=== PATIENT | male | born 1980 | race Caucasian/White ===

== ENCOUNTER 2016-09-26 16:54 | Emergency (ER) | payer OTHER ==
--- NOTE | 2016-09-26 18:05 | ERPHSYRPT ---
- History of Present Illness Time Seen by Provider: 09/26/16 17:32 Source: patient Patient Subjective Stated Complaint: PT REPORTS TAPE WAS CAUGHT ON COVERING OF PICC LINE-STATES THAT BANDAGE CAME OFF ET LINE CAME OUT DOTTY 1 IN-STATES HE HAS USED LINE SINCE THEN WITH NO DIFFICULTY-STATES HE NEEDS A DRESSING PLACED- DENIES UNSUAL PAIN OR DISCOMFORT Triage Nursing Assessment: PT PINK WARM ET BCG-LRXAA-SFLOE BLOOD NOTED AT SITE- TELFA DRESSING CURLED-NO EXCESSIVE REDNESS OR SWELLING NOTED Physician History: CC: PICC check Hx: 35 y/o patient of Dr Pringle and Ciro. He has a right arm PICC placed in radiology per Dr Chapman for IV abtx for leg wounds. Legs are doing well. He is using the abtx. He snagged the PICC on the dressing this AM. It pulled out about an inch. He has used the PICC without problem. He wants dressing changed. No redness, drng on PICC site. No fever or chills. No other complaints. Timing/Duration: today (am) Allergies/Adverse Reactions: sulfamethoxazole [From Novra] Allergy (Mild, Verified 09/26/16 17:03) trimethoprim [From Novra] Allergy (Mild, Verified 09/26/16 17:03) Home Medications: Clonidine HCl 0.1 mg [Catapres 0.1 MG] 0.3 mg PO BID 01/14/15 [History] Rivaroxaban [Xarelto] 20 mg PO DAILY 01/14/15 [History] Ceftolozane/Tazobactam [Zerbaxa 1.5 Gram Vial] 1.5 gm IV TID 09/27/15 [History] Daptomycin 500 mg [Cubicin 500 MG] 900 mg IV DAILY 09/27/15 [History] Losartan Potassium [Cozaar] 100 mg PO DAILY 09/26/16 [History] Hx Tetanus, Diphtheria Vaccination/Date Given: No Hx Influenza Vaccination/Date Given: No Hx Pneumococcal Vaccination/Date Given: No Immunizations Up to Date: Yes - Review of Systems Constitutional: No Fever, No Chills Neurological: No Focal Weakness, No Paralysis - Past Medical History Pertinent Past Medical History: Yes Neurological History: No Pertinent History ENT History: No Pertinent History Cardiac History: Deep Vein Thrombosis, Hypertension, Peripheral Vascular Disease Respiratory History: Bronchitis Endocrine Medical History: No Pertinent History Musculoskeletal History: No Pertinent History GI Medical History: No Pertinent History History: No Pertinent History Psycho-Social History: No Pertinent History Male Reproductive Disorders: No Pertinent History Other Medical History: venous ulcers, pyoderma gangrenouses auto immune disease, factor V leiden deficiency blood deficiency, hx mrsa left ankle - Past Surgical History Past Surgical History: Yes Neuro Surgical History: No Pertinent History Cardiac: No Pertinent History Respiratory: No Pertinent History Gastrointestinal: No Pertinent History Genitourinary: No Pertinent History Musculoskeletal: No Pertinent History Male Surgical History: No Pertinent History Other Surgical History: tonsils - Social History Smoking Status: Never smoker Exposure to second hand smoke: Yes Drug Use: none Patient Lives Alone: No Significant Family History: no pertinent family hx - Nursing Vital Signs Nursing Vital Signs: Initial Vital Signs Temperature 99.1 F 09/26/16 16:59 Pulse Rate 89 09/26/16 16:59 Respiratory Rate 18 09/26/16 16:59 Blood Pressure 144/98 09/26/16 16:59 O2 Sat by Pulse Oximetry 97 09/26/16 16:59 Pain Scale Pain Intensity 0 - Physical Exam General Appearance: alert Cardiovascular Exam: regular rate/rhythm Neurologic Exam: alert, oriented x 3, cooperative Skin Exam: warm, dry SpO2: 97 Oxygen Delivery: Room Air Comments: 09/26/16 18:02 Leg wrap on. The PICC is in the right arm. There is about 2.5 cm out of the arm. The dressing is rolled up and not covering the site. There is no redness, drng, or pus. The arm is not swollen. - Course Nursing assessment & vital signs reviewed: Yes - Radiology Exams cxr X-ray Interpretation: Reviewed by me (PICC in SVC and appears ok) Ordered Tests: Active Orders 24 hr Category Date Time Status CHEST 1 VIEW (PORTABLE) Stat Exams 09/26/16 17:38 Ordered - Progress Progress Note: 09/26/16 18:03 Advised pt not to advance the catheter back in. Ok to use and follow up with dr Carmona. PICC nurse redressed the insertion site. Counseled pt/family regarding: diagnosis, need for follow-up - Departure Time of Disposition: 18:04 Departure Disposition: Home Clinical Impression: Displacement of peripherally inserted central venous catheter (PICC) Condition: Stable Critical Care Time: No Referrals: THADDEUS CARMONA [Primary Care Provider] - NATALI PRINGLE [NON-STAFF PHY W/O PRIVILEGES] - Instructions: Change the Dressing on a Central Line Catheter for Adults Additional Instructions: Do not advance catheter or pull it out further. Keep dressing clean and dry. Follow up next week with Dr pringle. Report fever, redness, drainage, pus, or swelling.
[2016-09-26 18:14] VITALS: BP 142/100; PULSE 78; O2SAT 98
--- NOTE | 2016-09-27 17:51 | XRAY ---
Indication: Evaluate PICC line placement following accidental catheter manipulation. Comparison: Fluoroscopic image one day earlier. Portable chest demonstrates right arm PICC line with the tip in the proximal SVC slightly withdrawn compared to yesterday's exam still in good position. Remaining heart, lungs, and bony thorax normal.
== END 2016-09-26 18:14 | disposition home or self-care (01) ==
LOC: ED 16:54
DX: Z45.2 Encounter for adjustment and management of vascular access device (principal)
CPT/HCPCS: 71010; 99282

== ENCOUNTER 2019-03-20 16:14 | Emergency (ER) | payer OTHER ==
--- NOTE | 2019-03-20 16:25 | ERPHSYRPT ---
- History of Present Illness Source: patient, family Exam Limitations: no limitations Timing/Duration: day(s) (4) Severity: moderate Associated Symptoms: nausea, abdominal pain (left), chest pain Hx Tetanus, Diphtheria Vaccination/Date Given: No Hx Influenza Vaccination/Date Given: No Hx Pneumococcal Vaccination/Date Given: No <PRIYANKA WEINER - Last Filed: 03/20/19 19:05> <RAMA RUSSO - Last Filed: 03/20/19 22:24> - History of Present Illness Time Seen by Provider: 03/20/19 16:25 Physician History: 38 y/o diabetic morbidly obese white male with h/o htn and dvt on coumadin( stopped 2 days ago secondary to blood in bm), presents with left nonradiating cp and left upper abd pain. pt states he feel nauseated. (PRIYANKA WEINER) Allergies/Adverse Reactions: sulfamethoxazole [From Novra] Allergy (Mild, Verified 03/20/19 16:31) trimethoprim [From Novra] Allergy (Mild, Verified 03/20/19 16:31) Home Medications: Losartan Potassium [Cozaar] 100 mg PO DAILY 09/26/16 [History] Amlodipine Besylate 10 mg PO DAILY 03/20/19 [History] Apixaban [Eliquis] 5 mg PO BID 03/20/19 [History] Metformin HCl Xr 500 mg [Glucophage XR 500 MG] 500 mg PO DAILY 03/20/19 [ History] Metoprolol Tartrate 100 mg PO DAILY 03/20/19 [History] Triamterene/Hydrochlorothiazid [Triamterene-Hctz 75-50 mg Tab] 1 each PO DAILY 03/20/19 [History] - Review of Systems Constitutional: No Symptoms Eyes: No Symptoms Ears, Nose, & Throat: No Symptoms Respiratory: No Symptoms Cardiac: Chest Pain Abdominal/Gastrointestinal: Abdominal Pain, Nausea Genitourinary Symptoms: No Symptoms Musculoskeletal: No Symptoms Skin: No Symptoms Neurological: No Symptoms Psychological: No Symptoms Endocrine: No Symptoms Hematologic/Lymphatic: No Symptoms Immunological/Allergic: No Symptoms All Other Systems: Reviewed and Negative <PRIYANKA WEINER - Last Filed: 03/20/19 19:05> - Past Medical History Pertinent Past Medical History: Yes Neurological History: No Pertinent History ENT History: No Pertinent History Cardiac History: Deep Vein Thrombosis, Hypertension, Peripheral Vascular Disease Respiratory History: Bronchitis Endocrine Medical History: No Pertinent History Musculoskeletal History: No Pertinent History GI Medical History: No Pertinent History History: No Pertinent History Psycho-Social History: No Pertinent History Male Reproductive Disorders: No Pertinent History Other Medical History: venous ulcers, pyoderma gangrenouses auto immune disease, factor V leiden deficiency blood deficiency, hx mrsa left ankle - Past Surgical History Past Surgical History: Yes Neuro Surgical History: No Pertinent History Cardiac: No Pertinent History Respiratory: No Pertinent History Gastrointestinal: No Pertinent History Genitourinary: No Pertinent History Musculoskeletal: No Pertinent History Male Surgical History: No Pertinent History Other Surgical History: tonsils - Social History Smoking Status: Never smoker Exposure to second hand smoke: Yes Drug Use: none Patient Lives Alone: No Significant Family History: no pertinent family hx <PRIYANKA WEINER - Last Filed: 03/20/19 19:05> - Physical Exam General Appearance: mild distress, alert, anxiety, obese Eye Exam: PERRL/EOMI, eyes nml inspection Ears, Nose, Throat Exam: normal ENT inspection, moist mucous membranes Neck Exam: normal inspection, non-tender, supple, full range of motion Respiratory Exam: normal breath sounds, chest tenderness, lungs clear, airway intact, No respiratory distress Cardiovascular Exam: regular rate/rhythm, normal heart sounds, normal peripheral pulses Gastrointestinal/Abdomen Exam: soft, normal bowel sounds, No tenderness Rectal Exam: not done Back Exam: normal inspection, normal range of motion, No CVA tenderness, No vertebral tenderness Extremity Exam: normal inspection, normal range of motion, pelvis stable Neurologic Exam: alert, oriented x 3, cooperative, load out worker II-XII nml as tested Skin Exam: normal color, warm, dry Lymphatic Exam: No adenopathy SpO2 Interpretation: normal O2 Delivery: Room Air <PRIYANKA WEINER - Last Filed: 03/20/19 19:05> - Nursing Vital Signs Nursing Vital Signs: Initial Vital Signs Temperature 98.0 F 03/20/19 16:16 Pulse Rate 60 03/20/19 16:16 Respiratory Rate 17 03/20/19 16:16 Blood Pressure 121/69 03/20/19 16:16 O2 Sat by Pulse Oximetry 99 03/20/19 16:16 Pain Scale Pain Intensity 0 - Course Nursing assessment & vital signs reviewed: Yes EKG Interpreted by Me: RATE (91), Sinus Rhythm, NORMAL AXIS, NORMAL INTERVALS, NORMAL QRS, Other (no comparison ekg. ) <PRIYANKA WEINER - Last Filed: 03/20/19 19:05> - CT Exams Chest CT Interpretation: Other (radiologist interpretation: None intervals: Suboptimal opacification pulmonary arteries. No obvious central pulmonary embolus. Mild enlarged mediastinal bilateralaadenopathy, largest precarinal 2.0 x 3.3 cm. A few tiny indeterminate bilateral noncalcified lung nodules, large is 7 mm in the left lower lobe. Remaining CT of the chest negative.) Abdomen/Pelvis CT Interpretation: Other (radiologist interpretation:hhepatomegaly, mild fecal stasis, mild scattered colonic diverticula otherwise negative CT abdomen and pelvis) Head CT Interpretation: Other (per radiologist's interpretation: None the costal thickening bilateral ethmoid sinuses. Otherwise normal head CT.) <RAMA RUSSO - Last Filed: 03/20/19 22:24> Ordered Tests: Active Orders 24 hr Category Date Time Status EKG-ER Only STAT Care 03/20/19 16:39 Active IV Insertion STAT Care 03/20/19 16:39 Active ABDOMEN AND PELVIS W/0 CONTRAS [CT] Stat Exams 03/20/19 16:40 Taken CHEST 1 VIEW (PORTABLE) Stat Exams 03/20/19 16:40 Taken CHEST WITH CONTRAST [CT] Stat Exams 03/20/19 18:32 Taken HEAD WITHOUT CONTRAST [CT] Stat Exams 03/20/19 16:43 Taken AMYLASE Stat Lab 03/20/19 17:00 Completed CBC W DIFF Stat Lab 03/20/19 17:00 Completed CMP Stat Lab 03/20/19 17:00 Completed D-DIMER QUANTITATIVE Stat Lab 03/20/19 17:00 Completed LIPASE Stat Lab 03/20/19 17:00 Completed Lactic Acid Stat Lab 03/20/19 17:01 Completed PROTIME WITH INR Stat Lab 03/20/19 17:00 Completed TROPONIN Q3H Lab 03/20/19 17:00 Completed TROPONIN Q3H Lab 03/20/19 20:25 Completed TROPONIN Q3H Lab 03/20/19 22:45 Ordered TROPONIN Q3H Lab 03/21/19 01:45 Ordered TROPONIN Q3H Lab 03/21/19 04:45 Ordered UA W/RFX UR CULTURE Stat Lab 03/20/19 Completed Medication Summary Discontinued Medications Generic Name Dose Route Start Last Admin Trade Name Nicolás PRN Reason Stop Dose Admin Hydromorphone HCl 1 mg 03/20/19 16:39 03/20/19 17:29 Hydromorphone 1 Mg/Ml Ampule IV 03/20/19 16:40 1 mg STAT ONE Administration Hydromorphone HCl Confirm 03/20/19 17:27 Hydromorphone 1 Mg/Ml Ampule Administered 03/20/19 17:28 Dose 1 mg .ROUTE .STK-MED ONE Sodium Chloride 1,000 mls @ 999 mls/hr 03/20/19 16:39 03/20/19 18:45 Sodium Chloride 0.9% 1000 Ml IV 03/20/19 17:39 Infused .Q1H1M STA Infusion Sodium Chloride Confirm 03/20/19 17:27 Sodium Chloride 0.9% 1000 Ml Administered 03/20/19 17:28 Dose 1,000 mls @ ud .ROUTE .STK-MED ONE Ondansetron HCl 4 mg 03/20/19 16:39 03/20/19 17:29 Zofran 4 Mg/2 Ml Vial IV 03/20/19 16:40 4 mg STAT ONE Administration Ondansetron HCl Confirm 03/20/19 17:27 Zofran 4 Mg/2 Ml Vial Administered 03/20/19 17:28 Dose 4 mg .ROUTE .STK-MED ONE Lab/Rad Data: Laboratory Result Diagrams 03/20/19 17:00 03/20/19 17:00 Laboratory Results 03/20/19 03/20/19 03/20/19 Range/Units Unknown 20:25 17:01 WBC (4.0-10.5) K/mm3 RBC (4.1-5.6) M/mm3 Hgb (12.5-18.0) gm/dl Hct (42-50) % MCV (78-100) fl MCH (26-32) pg MCHC (32-36) g/dl RDW (11.5-14.0) % Plt Count (150-450) K/mm3 MPV (7.5-11.0) fl Gran % (36.0-66.0) % Eos # (Auto) (0-0.5) Absolute Lymphs (auto) (1.0-4.6) Absolute Monos (auto) (0.0-1.3) Lymphocytes % (24.0-44.0) % Monocytes % (0.0-12.0) % Eosinophils % (0.00-5.0) % Basophils % (0.0-0.4) % Absolute Granulocytes (1.4-6.9) Basophils # (0-0.4) PT (8.83-12.87) SECONDS INR (0.8-3.0) D-Dimer (215-500) ng/mL Sodium (137-145) mmol/L Potassium (3.5-5.1) mmol/L Chloride (98-107) mmol/L Carbon Dioxide (22-30) mmol/L Anion Gap (5-15) MEQ/L BUN (9-20) mg/dL Creatinine (0.66-1.25) mg/dL Estimated GFR ML/MIN Glucose (74-106) mg/dL Lactic Acid 1.7 (0.4-2.0) Calcium (8.4-10.2) mg/dL Total Bilirubin (0.2-1.3) mg/dL AST (17-59) U/L ALT (0-50) U/L Alkaline Phosphatase (38-126) U/L Troponin I < 0.012 (0.000-0.034) ng/mL Serum Total Protein (6.3-8.2) g/dL Albumin (3.5-5.0) g/dL Amylase (30-110) U/L Lipase (23-300) U/L Urine Color YELLOW (YELLOW) Urine Appearance CLEAR (CLEAR) Urine pH 6.0 (5-6) Ur Specific [place] 1.015 (1.005-1.025) Urine Protein NEGATIVE (Negative) Urine Ketones NEGATIVE (NEGATIVE) Urine Blood NEGATIVE (0-5) Leobardo/ul Urine Nitrite NEGATIVE (NEGATIVE) Urine Bilirubin NEGATIVE (NEGATIVE) Urine Urobilinogen NEGATIVE (0-1) mg/dL Ur Leukocyte Esterase NEGATIVE (NEGATIVE) Urine WBC (Auto) NONE (0-5) /HPF Urine RBC (Auto) NONE (0-2) /HPF U Epithel Cells (Auto) NONE (FEW) /HPF Urine Bacteria (Auto) NONE (NEGATIVE) /HPF Urine Culture Reflexed NO (NO) Urine Glucose NEGATIVE (NEGATIVE) mg/dL 03/20/19 03/20/19 03/20/19 Range/Units 17:00 17:00 17:00 WBC (4.0-10.5) K/mm3 RBC (4.1-5.6) M/mm3 Hgb (12.5-18.0) gm/dl Hct (42-50) % MCV (78-100) fl MCH (26-32) pg MCHC (32-36) g/dl RDW (11.5-14.0) % Plt Count (150-450) K/mm3 MPV (7.5-11.0) fl Gran % (36.0-66.0) % Eos # (Auto) (0-0.5) Absolute Lymphs (auto) (1.0-4.6) Absolute Monos (auto) (0.0-1.3) Lymphocytes % (24.0-44.0) % Monocytes % (0.0-12.0) % Eosinophils % (0.00-5.0) % Basophils % (0.0-0.4) % Absolute Granulocytes (1.4-6.9) Basophils # (0-0.4) PT 12.8 (8.83-12.87) SECONDS INR 1.13 (0.8-3.0) D-Dimer 1100 H* (215-500) ng/mL Sodium (137-145) mmol/L Potassium (3.5-5.1) mmol/L Chloride (98-107) mmol/L Carbon Dioxide (22-30) mmol/L Anion Gap (5-15) MEQ/L BUN (9-20) mg/dL Creatinine (0.66-1.25) mg/dL Estimated GFR ML/MIN Glucose (74-106) mg/dL Lactic Acid (0.4-2.0) Calcium (8.4-10.2) mg/dL Total Bilirubin (0.2-1.3) mg/dL AST (17-59) U/L ALT (0-50) U/L Alkaline Phosphatase (38-126) U/L Troponin I < 0.012 (0.000-0.034) ng/mL Serum Total Protein (6.3-8.2) g/dL Albumin (3.5-5.0) g/dL Amylase (30-110) U/L Lipase (23-300) U/L Urine Color (YELLOW) Urine Appearance (CLEAR) Urine pH (5-6) Ur Specific [place] (1.005-1.025) Urine Protein (Negative) Urine Ketones (NEGATIVE) Urine Blood (0-5) Leobardo/ul Urine Nitrite (NEGATIVE) Urine Bilirubin (NEGATIVE) Urine Urobilinogen (0-1) mg/dL Ur Leukocyte Esterase (NEGATIVE) Urine WBC (Auto) (0-5) /HPF Urine RBC (Auto) (0-2) /HPF U Epithel Cells (Auto) (FEW) /HPF Urine Bacteria (Auto) (NEGATIVE) /HPF Urine Culture Reflexed (NO) Urine Glucose (NEGATIVE) mg/dL 03/20/19 03/20/19 Range/Units 17:00 17:00 WBC 10.6 H (4.0-10.5) K/mm3 RBC 4.42 (4.1-5.6) M/mm3 Hgb 14.6 (12.5-18.0) gm/dl Hct 42.5 (42-50) % MCV 96.2 (78-100) fl MCH 33.0 H (26-32) pg MCHC 34.4 (32-36) g/dl RDW 13.4 (11.5-14.0) % Plt Count 243 (150-450) K/mm3 MPV 8.9 (7.5-11.0) fl Gran % 83.7 H (36.0-66.0) % Eos # (Auto) 0.20 (0-0.5) Absolute Lymphs (auto) 0.98 L (1.0-4.6) Absolute Monos (auto) 0.53 (0.0-1.3) Lymphocytes % 9.3 L (24.0-44.0) % Monocytes % 5.0 (0.0-12.0) % Eosinophils % 1.9 (0.00-5.0) % Basophils % 0.1 (0.0-0.4) % Absolute Granulocytes 8.86 H (1.4-6.9) Basophils # 0.01 (0-0.4) PT (8.83-12.87) SECONDS INR (0.8-3.0) D-Dimer (215-500) ng/mL Sodium 143 (137-145) mmol/L Potassium 4.2 (3.5-5.1) mmol/L Chloride 104 (98-107) mmol/L Carbon Dioxide 27 (22-30) mmol/L Anion Gap 15.8 H (5-15) MEQ/L BUN 27 H (9-20) mg/dL Creatinine 1.21 (0.66-1.25) mg/dL Estimated GFR > 60.0 ML/MIN Glucose 89 (74-106) mg/dL Lactic Acid (0.4-2.0) Calcium 9.3 (8.4-10.2) mg/dL Total Bilirubin 1.00 (0.2-1.3) mg/dL AST 30 (17-59) U/L ALT 33 (0-50) U/L Alkaline Phosphatase 42 (38-126) U/L Troponin I (0.000-0.034) ng/mL Serum Total Protein 7.7 (6.3-8.2) g/dL Albumin 4.3 (3.5-5.0) g/dL Amylase 135 H (30-110) U/L Lipase 388 H (23-300) U/L Urine Color (YELLOW) Urine Appearance (CLEAR) Urine pH (5-6) Ur Specific [place] (1.005-1.025) Urine Protein (Negative) Urine Ketones (NEGATIVE) Urine Blood (0-5) Leobardo/ul Urine Nitrite (NEGATIVE) Urine Bilirubin (NEGATIVE) Urine Urobilinogen (0-1) mg/dL Ur Leukocyte Esterase (NEGATIVE) Urine WBC (Auto) (0-5) /HPF Urine RBC (Auto) (0-2) /HPF U Epithel Cells (Auto) (FEW) /HPF Urine Bacteria (Auto) (NEGATIVE) /HPF Urine Culture Reflexed (NO) Urine Glucose (NEGATIVE) mg/dL - Progress Progress: improved <PRIYANKA WEINER - Last Filed: 03/20/19 19:05> - Progress Progress: improved Counseled pt/family regarding: lab results, diagnosis, need for follow-up, rad results <RAMA RUSSO - Last Filed: 03/20/19 22:24> - Progress Progress Note: 03/20/19 19:05 transfer of care to dr. russo. he accepts pt at shift change. (PRIYANKA WEINER) 03/20/19 22:00 The patient has no chest pain or shortness of breath at this time. Patient states he stopped taking his Eliquis due to having blood seen in his stool which he has discussed with this physician, Dr. Prather, who he he has setup for a colonoscopy with Dr Prather performing it. With two negative troponins and a negative CT of the Chest for obvious large pulmonary embolus, ppatient will followup with his physician on 03/21/20192 discussed restarting the Eliquis due to his risk factors of being thrombophilia from having factor V Leiden and getting his colonoscopy sooner than at the end of this month. patient is not require inpatient admission this timeas he is at low risk of having any acute cardiac, palmar, vascular or infectious etiology causing his chest pain at this time with a low heart score in 2 negative troponins and a negative CT of the chest. (RAMA RUSSO) <PRIYANKA WEINER - Last Filed: 03/20/19 19:05> - Departure Departure Disposition: Home Critical Care Time: No <RAMA RUSSO - Last Filed: 03/20/19 22:24> - Departure Clinical Impression: Upper abdominal pain Chest pain Qualifiers: Chest pain type: unspecified Qualified Code(s): R07.9 - Chest pain, unspecified Condition: Good Referrals: SHIN PRATHER [Primary Care Provider] - 03/21/19 (discuss to do the colonoscopy sooner and restart your Eliquis on 03/21/[address] Prather) Instructions: Shortness of Breath (Dyspnea) (DC), Chest Pain (DC), Acute Abdomen (Belly Pain), Adult (DC) Additional Instructions: Discharge/Care Plan JUMANA BALLARD JRKATHY JACOB was seen on 03/20/19 in the Emergency Room. The patient was counseled regarding Diagnosis,Lab results, Imaging studies, need for follow up and when to return to the Emergency Room. return immediately back to the emergency room if any worsening chest pain, shortness of breath, pain on inspiration, coughing up blood, no blood in the stool, stools, blood in the urine, abdominal pain worsening, new fever or any other concerning signs or symptoms that were not present at today's murmurs are visits for in the reevaluation in the emergency department. Discuss restarting your Eliquis on with Dr Prather and getting your colonoscopy sooner. Prescriptions given: None Discharge Note I have spoken with the patient and family. I have explained the patient's condition, diagnosis and treatment plan based on the information available to me at this time. I have answered the patient's and family's questions and addressed any concerns. The patient and his family have a good understanding of the patient's diagnosis, condition and treatment plan as can be expected at this point. The vital signs have been stable. The patient's condition is stable and appropriate for discharge from the emergency department. The patient will pursue further outpatient evaluation with the primary care physician or other designated or consulting physician as outlined in the discharge instructions. The patient and family are agreeable to this plan of care and follow-up instructions have been explained in detail. The patient and family have received these instruction. The patient and family are aware that any significant change in condition or worsening of symptoms should prompt an immediate return to this or the closest emergency department or call 911.
[2019-03-20] MEDS ORDERED: Hydromorphone 1 mg/ml Ampule IV ONE (16:39)
[2019-03-20] MEDS ORDERED: Zofran 4 MG/2 ML VIAL IV ONE (16:39)
[2019-03-20] MEDS ORDERED: Sodium Chloride 0.9% 1000 ML 1,000 ML IV STA (16:39)
[2019-03-20 17:14] LABS: Absolute Neutrophil Ct (ANC) 8.86 (1.4-6.9); BASOPHIL % 0.1 % (0.0-0.4); Basophil (Absolute #) 0.01 (0-0.4); Eosinophil % 1.9 % (0.00-5.0); Hematocrit 42.5 % (42-50); Hemoglobin 14.6 gm/dl (12.5-18.0); INR 1.13 (0.8-3.0); Lymphocyte (Absolute #) 0.98 (1.0-4.6); Lymphocytes % 9.3 % (24.0-44.0); Mean Cell Volume 96.2 fl (78-100); Mean Corpuscular Hgb Concent. 34.4 g/dl (32-36); Mean Platelet Volume 8.9 fl (7.5-11.0); Monocyte (Absolute #) 0.53 (0.0-1.3); Neutrophil % 83.7 % (36.0-66.0); PROTIME 12.8 SECONDS (8.83-12.87); Platelet Count 243 K/mm3 (150-450); Red Blood Count 4.42 M/mm3 (4.1-5.6); Red Cell Distribution Width 13.4 % (11.5-14.0); White Blood Count 10.6 K/mm3 (4.0-10.5)
[2019-03-20 17:18] LABS: ALBUMIN 4.3 g/dL (3.5-5.0); ALKALINE PHOSPHATASE 42 U/L (38-126); AMYLASE 135 U/L (30-110); ANION GAP 15.8 MEQ/L (5-15); BLOOD UREA NITROGEN 27 mg/dL (9-20); CHLORIDE 104 mmol/L (98-107); Calcium 9.3 mg/dL (8.4-10.2); Carbon Dioxide 27 mmol/L (22-30); Creatinine 1 1.21 mg/dL (0.66-1.25); Glucose 89 mg/dL (74-106); LIPASE 388 U/L (23-300); Potassium 4.2 mmol/L (3.5-5.1); SGOT/AST 30 U/L (17-59); SGPT/ALT 33 U/L (0-50); SODIUM 143 mmol/L (137-145); Total Protein 7.7 g/dL (6.3-8.2)
[2019-03-20] MEDS ORDERED: Hydromorphone 1 mg/ml Ampule ONE (17:27)
[2019-03-20] MEDS ORDERED: Sodium Chloride 0.9% 1000 ML 1,000 ML ONE (17:27)
[2019-03-20] MEDS ORDERED: Zofran 4 MG/2 ML VIAL ONE (17:27)
[2019-03-20 20:31] LABS: Appearance CLEAR (CLEAR); Bilirubin NEGATIVE (NEGATIVE); Blood NEGATIVE Ery/ul (0-5); Glucose NEGATIVE (NEGATIVE); Ketones NEGATIVE (NEGATIVE); Leukocyte Esterase NEGATIVE (NEGATIVE); Nitrite NEGATIVE (NEGATIVE); Protein,Urine Dip NEGATIVE (Negative); Specific Gravity 1.015 (1.005-1.025); Urobilinogen NEGATIVE mg/dL (0-1)
[2019-03-20 22:20] VITALS: BP 132/82; PULSE 88; O2SAT 97
--- NOTE | 2019-03-21 08:47 | XRAY ---
Indication: Headache and lightheadedness. Multiple contiguous axial images obtained through the head without contrast. Comparison: None Normal appearing brain parenchyma, ventricles, and bony calvarium. There is mild mucosal thickening of both ethmoid and lesser degree both maxillary sinuses. Mastoid air cells are clear. Impression: Paranasal sinus disease. Remaining CT head without contrast exam is normal.
--- NOTE | 2019-03-21 08:49 | XRAY ---
Indication: Abdomen pain 1 week. Nausea. Multiple contiguous axial images obtained through the abdomen and pelvis without contrast as ordered. Comparison: None CT chest reported separately. Noncontrasted stomach and bowel loops appear nonobstructed. Normal appendix. Mild scattered colonic fecal debris and mild colonic diverticulosis throughout. No free fluid/air. Liver is enlarged measuring 23 cm. Spleen is also enlarged measuring 13.5 cm. Remaining liver, gallbladder, pancreas, spleen, adrenal glands, kidneys, ureters, bladder, and aorta appear unremarkable for noncontrast exam. Osseous structures intact. Impression: 1. Mild fecal stasis without obstruction, colonic diverticulosis, and hepatosplenomegaly. 2. Remaining CT abdomen/pelvis without contrast exam is negative.
--- NOTE | 2019-03-21 08:53 | XRAY ---
Indication: Elevated d-dimer. Multiple contiguous axial images obtained through the chest using 100 cc Isovue 370 contrast and PE protocol. Comparison: None There is suboptimal opacification of the pulmonary arteries limiting evaluation of the lobar and segmental branches. No obvious central pulmonary embolus. Heart is not enlarged. Aorta is normal in course and caliber. There are multiple prominent mediastinal and bilateral hilar lymph nodes, largest precarinal measuring 2.0 x 3.3 cm. Examination of the lung parenchyma a few bilateral subpleural noncalcified micronodules, largest 7 mm in the left lower lobe adjacent to the fissure. Findings are indeterminant at this time. No infiltrate, consolidation, or effusion. Bony thorax intact with minimal degenerative changes throughout the spine. CT abdomen reported separately. Impression: 1. Pulmonary embolus evaluation limited due to suboptimal opacification. No obvious central pulmonary embolus. 2. Indeterminant bilateral noncalcified micronodules. Comparison studies would be of benefit if performed elsewhere. If not, recommend follow-up per Fleischner guidelines. 3. Mediastinal and bilateral hilar lymphadenopathy. Findings possibly reactive. Cannot completely exclude malignancy.
--- NOTE | 2019-03-21 08:55 | XRAY ---
Indication: Chest pain. Comparison: September 26, 2016. Portable chest again demonstrates normal heart and lungs. Bony thorax intact. No new/acute findings.
== END 2019-03-20 22:29 | disposition home or self-care (01) ==
LOC: ED 16:14
DX: R10.10 Upper abdominal pain, unspecified (principal); R07.9 Chest pain, unspecified
CPT/HCPCS: 36000; 36415; 70450; 71045; 71260; 74176; 80053; 81001; 82150; 83605; 83690; 84484; 85025; 85379; 85610; 93005; 96360; 96374; 96375; 99284; J1170; J2405

== ENCOUNTER 2021-09-01 10:23 | Day surgery (SDC) | payer OTHER ==
--- NOTE | 2021-09-01 09:18 | HP ---
DATE OF SURGERY: 09/01/2021 HISTORY OF PRESENT ILLNESS: The patient is a 40-year-old with enlarging cyst or nodule on his scalp in need of excision. PAST MEDICAL HISTORY: He has had Factor V Leiden issue. Hypertension in the past. Deep vein thrombosis in the past. Chronic lung disease. PAST SURGICAL HISTORY: Tonsillectomy in the past. MEDICATIONS: He had been on Xarelto, metoprolol, triamterene, losartan, Albuterol for some chronic lung disease. ALLERGIES: SULFAMETHOXAZOLE. TRIMETHOPRIM. FAMILY HISTORY: Diabetes, hypertension. SOCIAL HISTORY: No smoking or alcohol abuse. REVIEW OF SYSTEMS: Fourteen systems reviewed. No chest pain or palpitations. Other systems negative or noncontributory as above and per preadmission questionnaire. PHYSICAL EXAMINATION: GENERAL: No acute distress. HEENT: Sclerae nonicteric. NECK: No JVD. CHEST: Equal excursion, nonlabored breathing. CVS: Regular rate and rhythm. ABDOMEN: Soft. EXTREMITIES: No cyanosis. NEURO: Alert, moving extremities symmetrically. PSYCH: Appropriate mood and affect. IMPRESSION: Scalp enlarging nodule or cyst in need of excision possible skin graft. Risks and benefits explained in detail. General risk of bleeding or infection, risk of wound dehiscence possibly requiring packing, possible need for graft placement, general risk of aches, pains, burning or numbness possible nursing home or chronic in nature, possibility of what we excise likely will not recur once he heals the wound but could get similar cyst or nodule adjacent to or elsewhere on his body. He understands and agrees to the planned procedure. Will proceed with excisional biopsy of enlarging scalp cyst or nodule possible skin graft as an outpatient.
[~2021-09-01 10:23] MED LIST: CEFAZOLIN 2 GM-D5W BAG** 2 GM/50 ML ML IV ONE; CEFAZOLIN 2 GM-D5W BAG** 2 GM/50 ML ML IV SCH; Lactated Ringers 1,000 ML IV ONE; Lactated Ringers 1,000 ML IV SCH; Sensorcaine 0.25% 10 ML ONE
[2021-09-01 11:15] LABS: Hematocrit 40.4 % (42-50); Hemoglobin 13.4 g/dL (12.5-18.0); Mean Corpuscular Hemoglobin 30.5 pg (26-32); Mean Corpuscular Hgb Concent. 33.2 g/dL (32-36); Mean Platelet Volume 8.4 fL (7.5-11.0); Platelet Count 220 x10^3/uL (150-450); Red Blood Count 4.39 x10^6/uL (4.1-5.6); Red Cell Distribution Width 13.9 % (11.5-14.0); White Blood Count 5.7 x10^3/uL (4.0-10.5)
[2021-09-01 11:25] LABS: ALBUMIN 3.9 g/dL (3.5-5.0); ALKALINE PHOSPHATASE 56 U/L (38-126); ANION GAP 11.1 MEQ/L (5-15); BLOOD UREA NITROGEN 18 mg/dL (9-20); CHLORIDE 102 mmol/L (98-107); Calcium 8.9 mg/dL (8.4-10.2); Carbon Dioxide 28 mmol/L (22-30); Creatinine 1 1.24 mg/dL (0.66-1.25); EST GLOMERULAR FILTRATION RATE > 60.0 ML/MIN; Glucose 96 mg/dL (74-106); Potassium 3.6 mmol/L (3.5-5.1); SGOT/AST 25 U/L (17-59); SGPT/ALT 27 U/L (0-50); SODIUM 138 mmol/L (137-145); Total Protein 7.2 g/dL (6.3-8.2)
[2021-09-01] MEDS ORDERED: TORAdol 30 mg Injection ONE (12:53)
[2021-09-01] MEDS ORDERED: DIPRIVAN 200 MG/20 ML IV ONE (12:53)
[2021-09-01] MEDS ORDERED: SUBLIMAZE 250 MCG/5 ML ONE (12:53)
[2021-09-01] MEDS ORDERED: Xylocaine-Mpf 2% 5 Ml Vial ONE (12:53)
[2021-09-01] MEDS ORDERED: Zofran 4 MG/2 ML VIAL ONE (12:53)
[2021-09-01] MEDS ORDERED: Decadron 4 MG INJ ONE (12:53)
[2021-09-01] MEDS ORDERED: Quelicin Fliptop 200 MG/10 ML ONE ×2 (12:54→12:55)
[2021-09-01] MEDS ORDERED: Pre-Attached Lta Kit TP ONE (13:01)
[2021-09-01] MEDS ORDERED: Triple Antibiotic Ointment ONE (13:55)
[2021-09-01 15:12] VITALS: O2SAT 93
[2021-09-01 15:54] VITALS: BP 159/88; PULSE 79
--- NOTE | 2021-09-02 08:05 | OP ---
SURGERY DATE/TIME: 09/01/2021 1301 PREOPERATIVE DIAGNOSIS: Enlarging scalp nodule or cyst in need of excision. POSTOPERATIVE DIAGNOSIS: Enlarging scalp nodule or cyst in need of excision. PROCEDURE: Excisional biopsy enlarging nodule or cyst left forehead junction with the scalp (approximately 3.2 cm) with advancement flap closure. SURGEON: Dr. Demetrio Galvan. ANESTHESIA: General. ESTIMATED BLOOD LOSS: Minimal. INDICATIONS: As noted above. Risks and benefits explained in detail and not limited to and consent obtained. The site had been previously marked in the preoperative holding area. DESCRIPTION OF PROCEDURE AND FINDINGS: The patient is taken to the operating room. General anesthesia induced. Prepped and draped in the usual sterile fashion. After official time out and no disagreement with planned procedure, marking out to normal appearing skin on either side of this requiring spindle shape excision pattern. Dissection carried deep down to the underlying fascia and out around this area. It was a little bit dark in color. Whether this is some sort of hemangioma, nodule or cyst is unclear at this point went out to clear margins and then dissecting off a clean plane off the underlying fascia and it measured about 3.2 cm including margins, about a 4.5 cm spindle shaped excision pattern. The specimen is passed off for pathology. The flaps were undermined on either side and then the flaps were advanced back to the midline with interrupted 3-0 Vicryl closing the deep and superficial subcu. Skin closed with interrupted combination of vertical mattress and simple interrupted 3-0 and 4-0 Prolene. Some antibiotic ointment and sterile dressing applied. The patient tolerated the procedure well. There were no immediate complications. Findings discussed with the family out in the waiting area. I will see him back in the office next week to remove the sutures.
== END 2021-09-01 13:50 | disposition home or self-care (01) ==
LOC: SDC 10:23
PROVIDERS: ATTEND Surgery
DX: D23.4 Other benign neoplasm of skin of scalp and neck (principal); L72.0 Epidermal cyst
CPT/HCPCS: 36415; 80053; 85027; 93005; J0330; J0690; J1100; J1885; J2405; J2704; J3010; A9270-GY